=== PATIENT | female | born 2000 | race Hispanic/Latino ===

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

== ENCOUNTER 2022-08-26 15:11 | Outpatient (CLI) | payer OTHER, SELFPAY ==
[2022-08-26 21:32] LABS: Hemoglobin 13.3 g/dL (12.0-15.0); Mean Corpuscular HGB Conc 32.4 g/dl (32-36); Mean Corpuscular Hemoglobin 28.8 pg (26-34); Mean Corpuscular Volume 88.7 fl (80-100); Mean Platelet Volume 10.5 fl (7.4-10.4); Platelet Count Result 322 k/mm3 (150-375); Red Blood Count 4.62 M/mm3 (4.2-5.4); Red Cell Distribution Width 12.5 % (11.5-14.5); White Blood Count 6.2 K/mm3 (4.5-10.0)
[2022-08-26 21:37] LABS: Alanine Aminotransferase 24 U/L (6-35); Albumin Level 4.6 g/dL (3.7-5.6); Alkaline Phosphatase 67 U/L (45-116); Anion Gap 7 mmol/L (8-16); Aspartate Amino Transferase 37 U/L (14-36); Bilirubin,Total 0.5 mg/dL (0.2-1.3); Blood Urea Nitrogen 13 mg/dL (8-21); Carbon Dioxide 28 mmol/L (22-30); Chloride 103 mmol/L (98-107); Estimated Glomerular Filt Rate > 60; Glucose 78 mg/dL (65-110); Sodium 138 mmol/L (134-143)
[2022-08-26 21:39] LABS: Vitamin D 25 Hydroxy 32.8 ng/mL
== END 2022-08-26 15:12 | disposition home or self-care (01) ==
LOC: ANHBWCLAB 15:14
PROVIDERS: PCP Family Medicine; Visit Provider Family Medicine
DX: R79.89 Other specified abnormal findings of blood chemistry (principal); M85.80 Other specified disorders of bone density and structure, unspecified site; F41.9 Anxiety disorder, unspecified; K91.2 Postsurgical malabsorption, not elsewhere classified; E61.1 Iron deficiency
CPT/HCPCS: 36415; 80053; 82306; 85027

== ENCOUNTER 2023-09-09 08:39 | Outpatient (CLI) | payer BC, SELFPAY ==
[2023-09-09 19:28] LABS: Hematocrit 40.5 % (37.0-47.0); Hemoglobin 12.8 g/dL (12.0-15.0); Mean Corpuscular HGB Conc 31.6 g/dl (32-36); Mean Corpuscular Hemoglobin 28.9 pg (26-34); Mean Corpuscular Volume 91.4 fl (80-100); Mean Platelet Volume 10.2 fl (7.4-10.4); Platelet Count Result 260 k/mm3 (150-375); Red Blood Count 4.43 M/mm3 (4.2-5.4); Red Cell Distribution Width 13.7 % (11.5-14.5)
[2023-09-09 20:02] LABS: Erythrocyte Sedimentation Rate 14 mm/hr (0-20)
[2023-09-09 20:14] LABS: Vitamin D 25 Hydroxy 38.3 ng/mL
[2023-09-09 21:18] LABS: Alanine Aminotransferase 18 U/L (6-35); Albumin Level 4.4 g/dL (3.5-5.1); Alkaline Phosphatase 69 U/L (38-126); Anion Gap 10 mmol/L (8-16); Aspartate Amino Transferase 35 U/L (14-36); Bilirubin,Total 0.6 mg/dL (0.2-1.3); Blood Urea Nitrogen 19 mg/dL (7-17); Calcium 9.4 mg/dL (8.4-10.2); Carbon Dioxide 23 mmol/L (22-30); Chloride 106 mmol/L (98-107); Estimated Glomerular Filt Rate > 60; Glucose 85 mg/dL (65-110); Potassium 3.9 mmol/L (3.4-5.0); Sodium 139 mmol/L (137-145)
[2023-09-09 21:19] LABS: Rheumatoid Factor < 12.0 IU/ML (<12)
[2023-09-09 21:21] LABS: Iron 143 ug/dL (37-170)
[2023-09-09 21:24] LABS: Percent Iron Saturation 37 % (20-50)
[2023-09-09 22:24] LABS: Folic Acid 11.9 ng/mL (2.76->20)
[2023-09-11 18:24] LABS: ANA Cascade Screen Negative (Negative)
== END 2023-09-09 08:40 | disposition home or self-care (01) ==
LOC: ANHBWCLAB 08:47
PROVIDERS: PCP Nurse Practitioner Adult Health; Visit Provider Nurse Practitioner Adult Health
DX: R79.89 Other specified abnormal findings of blood chemistry (principal); E61.1 Iron deficiency; E53.8 Deficiency of other specified B group vitamins; M25.50 Pain in unspecified joint; Z13.9 Encounter for screening, unspecified; M85.80 Other specified disorders of bone density and structure, unspecified site
CPT/HCPCS: 36415; 80053; 82306; 82607; 82728; 82746; 83540; 83550; 84443; 85027; 85652; 86038; 86225; 86235; 86364; 86430

== ENCOUNTER 2023-11-26 10:16 | Outpatient (CLI) | payer BC, SELFPAY ==
--- NOTE | ~2023-11-26 | DEXA_ITS ---
Bone Density Report Name: DAMIAN OH Age: 23 Sex: Female Ethnicity: White Date of : 2000 Indication: prior fracture; Referring Provider: CASEY BARKLEY Study: Bone densitometry was performed. Exam Date: November 26, 2023 Accession number: [id number] Bone Density: Region BMD T-score Z-score Classification AP Spine (L1-L4) 0.932 -1.0 -0.8 Normal Femoral Neck (Left) 0.971 1.1 1.1 Normal Total Hip (Left) 1.038 0.8 0.8 Normal Femoral Neck (Right) 1.039 1.7 1.7 Normal Total Hip (Right) 1.058 1.0 1.0 Normal Total Hip Mean 1.048 0.9 0.9 Normal World Health Organization criteria for BMD impression classify patients as: Normal (T-score at or above -1.0), Osteopenia (T-score between -1.0 and -2.5), or Osteoporosis (T-score at or below -2.5). 10-year Fracture Risk: FRAX not reported because: All T-scores for Spine Total, Hip Total, Femoral Neck at or above -1.0 Prior hip or vertebral fracture Clinical Information Provided by Patient: Have had a previous hip or vertebral fracture Has had a low trauma fracture Has used the following medications: Vitamin D, Calcium Patient maximum height was 62.75 Does not regularly consume dairy products Drinks caffeinated beverages Onset of menses at age 11 Premenopausal Number of children 0 Impression: The patient's bone mass is within expected range for age, gender and ethnicity. The patient has risk factors, including: previous fracture. Discussion: BONE DENSITY IS WITHIN EXPECTED LIMITS FOR AGE, SEX AND RACE. HISTORY OF FRACTURE. Although there is a predictable association between low bone mass and the risk of osteoporotic fractures in untreated postmenopausal women, there are no data relating bone density and fracture risk in younger women. The ISCD position is that the diagnosis of ?low bone mass? or ?osteoporosis? should not be made on densitometric criteria alone. WHO criteria only apply to postmenopausal women. Further evaluation should be considered given the patient's history of fracture at a young age. The patient should follow a healthful lifestyle (good nutrition with adequate calcium and vitamin D, and appropriate weight-bearing exercise). Follow-Up: Consider a repeat BMD and Vertebral Fracture Assessment (VFA) exam in 2 years or sooner if medically necessary, to reassess this patient's status. Reported by: ALIYAH on 11/26/2023 11:08:00 AM. Reviewed, dictated and finalized at location A. [facility]
== END 2023-11-26 10:17 ==
PROVIDERS: PCP Nurse Practitioner Adult Health; Visit Provider Nurse Practitioner Adult Health
DX: M85.80 Other specified disorders of bone density and structure, unspecified site (principal)
CPT/HCPCS: 77080

== ENCOUNTER 2025-02-04 08:51 | Emergency (ER) | payer BC, SELFPAY ==
--- NOTE | ~2025-02-04 | XR_ITS ---
XR ankle RT min 3V Ordering provider: Joce Guerrero APRN History: . fall down stairs yesterday, medial pain . Comparison: None. FINDINGS: BONES: No acute fracture or dislocation. JOINT SPACES: Normal. SOFT TISSUES: Normal. IMPRESSION: No acute osseous abnormality of the right ankle. Reviewed, dictated and finalized at location A.
--- NOTE | ~2025-02-04 | XR_ITS ---
XR foot RT min 3V Ordering provider: Joce Guerrero APRN History: . fall down stairs yesterday, prox plantar pain . Comparison: None. FINDINGS: BONES: No acute fracture or dislocation. JOINT SPACES: Normal. No tarsal coalition. SOFT TISSUES: Normal. IMPRESSION: No acute osseous abnormality of the right foot. Reviewed, dictated and finalized at location A.
[2025-02-04 09:03] VITALS: BP 111/75; PULSE 80; RESP 18; TEMP 37.1; O2SAT 99
--- NOTE | 2025-02-04 09:15 | ED_ITS ---
HPI - Extremity Injury (Lower) General Chief Complaint: Extremity Injury, Lower Stated Complaint: Right Ankle Injury Time Seen by Provider: 02/04/25 09:10 Source: patient and RN notes reviewed Mode of arrival: ambulatory Limitations: no limitations History of Present Illness HPI Narrative: 24-year-old female Presents to [facility] complaining of injury to right ankle. Patient reports she was going down the steps when her dog pressure down approximately 3-4 steps and she fell to the ground. Patient denies hitting her head, any loss of consciousness neck, or back pain. Patient said she please when she fell she rolled her right ankle. Patient is complaining of medial pain to her ankle and states that it hurts to bear weight on it. Patient said last night she could not put any weight on it and had to call off work. Patient says it hurts worse to drive with her ankle. Patient denies any significant past medical history. Patient is not try anything [id number] to help with symptoms. Related Data Home Medications ?Medication ?Instructions ?Recorded ?Confirmed ?Last Taken ?Type No Home Medications 09/09/23 02/04/25 Unknown History Allergies Allergy/AdvReac Type Severity Reaction Status Date / Time No Known Allergies Allergy Verified 02/04/25 09:04 Review of Systems Review of Systems: CONSTITUTIONAL: Denies fever, chills, or sweats. EYES: Denies visual changes, redness, or discharge. ENT: Denies rhinorrhea, congestion, sore throat, or otalgia. CARDIOVASCULAR: Denies chest pain, syncope, dizziness, lightheadedness, palpitations, or edema. RESPIRATORY: Denies cough or dyspnea. GASTROINTESTINAL: Denies abdominal pain, nausea, vomiting, or diarrhea. GENITOURINARY: Denies dysuria or hematuria. SKIN: Denies rash, wound, or itching. MUSCULOSKELETAL: Denies back pain, neck pain, joint pain, or myalgia. Positive for right ankle injury and swelling NEUROLOGIC: Denies headache, numbness, seizures, or weakness. PSYCHIATRIC: Denies anxiety or depression. All other systems reviewed are negative, except as documented in HPI. [facility] Past Medical History Medical History Osteopenia Back pain Anxiety Allergies Duodenal atresia Surgical History Surgical History History of intestinal surgery Family History Family History Father Heart disease Grandparent COPD (chronic obstructive pulmonary disease) Diabetes mellitus Other ADD (attention deficit disorder) ADHD Alcoholism Anemia CHF (congestive heart failure), NYHA class I Chest pain Depression Headache, migraine Hypertension Vision loss Social History Social History Smoking status: Never smoker Alcohol intake: never Substance use: never Gender identity (if verbalized by the patient): Female Comments At the time of my signature, I reviewed and agree with the nursing past medical, surgical, social, and family history. There is no relevant family history pertinent to the patient complaint. Exam Narrative: GENERAL: This is a well-nourished, well-developed adult, in no apparent distress. They are non ill-appearing, nontoxic appearing. HEAD: normocephalic, atraumatic. No raccoon eyes or [place] signs. EYES: Sclera clear/white. Vision is grossly intact. Conjunctiva normal. Extraocular movement intact. Pupils PERRLA. EARS: External ears normal Hearing grossly intact. NOSE: External nose normal THROAT: Mucous membranes moist NECK: Neck supple CARDIOVASCULAR: Regular rate and rhythm RESPIRATORY: Respiratory rate normal, respiratory effort nonlabored, no respiratory distress NEURO: awake, alert, and oriented to person, place and time. There were no obvious focal neurologic abnormalities. EXTREMITIES: Right ankle/foot No obvious deformity, bruising, redness. Mild swelling to the medial side of ankle. Mild tenderness to full range of motion ankle. Tenderness to palpation to the medial ankle, and proximal plantar surface of foot. Capillary refill less than 3 seconds. Right pedal Pulse 2 +palpable. Normal sensation. Neurovascular status intact distal injury. Patient able or toes. Negative Stanford's test. BACK: Nontender without deformity. Course Course Emergency Course: Portions of this record may have been created with voice recognition software Level of Care: Express Care Visit Vital Signs Vital signs: Vital Signs Temperature 98.8 F 02/04/25 09:03 Pulse Rate 80 02/04/25 09:03 Respiratory Rate 18 02/04/25 09:03 Blood Pressure 111/75 02/04/25 09:03 Pulse Oximetry 99 02/04/25 09:03 Oxygen Delivery Room Air 02/04/25 09:03 Temperature 98.8 F 02/04/25 09:03 Pulse Rate 80 02/04/25 09:03 Respiratory Rate 18 02/04/25 09:03 Blood Pressure 111/75 02/04/25 09:03 Pulse Oximetry 99 02/04/25 09:03 Oxygen Delivery Room Air 02/04/25 09:03 Reviewed MDM - Extremity Injury (Lower) MDM Narrative Medical decision making narrative: X-ray right foot/ankle showed no evidence of acute fracture findings. Likely ankle sprain. Negative Stanford's test. Patient is given Wilfredo wrap for comfort. Discussed physical exam findings. Advised supportive measures and signs/symptoms to go to the ER. Pt is appropriate for outpt treatment and f/u. Differential Diagnosis Differential diagnosis: Likely ankle sprain and strain, ankle fracture and other (Foot fracture) Imaging Data Radiologist's impression: ITS Impressions Foot X-Ray 02/04/25 09:24 IMPRESSION: No acute osseous abnormality of the right foot. Ankle X-Ray 02/04/25 09:26 IMPRESSION: No acute osseous abnormality of the right ankle. Critical Care Time Critical Care Time Critical Care Time: No Discharge Plan Discharge Clinical Impression: Injury of ankle, right Qualifiers: Encounter type: initial encounter Qualified Code(s): S99.911A - Unspecified injury of right ankle, initial encounter Accidental fall on or from stairs or steps Qualifiers: Encounter type: initial encounter Qualified Code(s): W10.8XXA - Fall (on) (from) other stairs and steps, initial encounter Patient Disposition: Home Condition: Stable Instructions: Ankle Sprain (ED) Additional Instructions: Your x-ray of your right foot and ankle are negative for any fracture or acute findings. Rest and elevate the leg; bear weight as tolerated Apply ice 15-20 minute intervals several times a day Keep it wrapped with WILFREDO or use a soft ankle splint Motrin 600mg -800mg every 8 hours, alternate with Tylenol 1000mg every 8 hours as needed Follow up with your primary care provider or orthopedist in 1-2 weeks if pain does not get better. Patient Language: German Prescriptions: No Action No Home Medications Follow-up/Referrals: Dean Gonzalez MD [Physician] - Vincent,Michelle, BILLET CUTTER [Primary Care Provider] - Stand Alone Forms: Work/School Release IP Time of Disposition: 09:34
== END 2025-02-04 09:38 | disposition home or self-care (01) ==
PROVIDERS: PCP Nurse Practitioner Adult Health
DX: S99.911A Unspecified injury of right ankle, initial encounter (principal); W10.8XXA Fall (on) (from) other stairs and steps, initial encounter
CPT/HCPCS: 73610; 73630; 99213; G0463